=== PATIENT | male | born 1940 | race Caucasian/White ===

== ENCOUNTER → 2020-05-28 16:00 | Outpatient (CLI) | payer MEDICARE, OTHER, SELFPAY ==
--- NOTE | 2020-05-28 | CYSPIN_PTH ---
PATIENT: REYNALDO FRANK Jr. LOC: LAB U#:[id number] AGE/SX: 84/M ROOM: RE05/28/[address]: Dr. Abhishek Pedersen MD : 1940 BED: DIS: SPEC #: [id number] RECD: 05/29/20 08:27 STATUS: PAOLO REDeepa #: [id number] MANSI: 05/28/20 00:[address]: Abhishek Pedersen DEPT: CYTOLOGY RECD BY: Nabila Hollis ENTERED: 05/29/20 08:28 SP TYPE: CYSPIN FL OTHR DR: Dr. Micheal Jackman, DO Tissues: Urine Procedures: Pap Stain (control) Special Stain Group II Cytospin Fluid HEADER OPERATION: Not noted PRE-OP DIAGNOSIS: Gross hematuria TISSUE SUBMITTED: Urine for cytology DIAGNOSIS CYTOLOGY Urine for cytology (cytospin): Negative for malignant cells. Blood. AM:gerard 05/30/2020 CYTOLOGY STUDY Slides are reviewed. CYTOLOGY GROSS Received is 80 ml of yellow cloudy fluid labeled with the patient's name and and designated per the requisition as urine. Submitted for cytology preparation. / rg 05/29/2020 TC:5 CPT: 34104
[2020-05-28 17:07] LABS: Cytology, Body Fluid / CSF SEE PATHOLOGY REPORT
[2020-05-28 18:10] LABS: PSA,Total - Annual Screen 1.67 ng/mL (0.00-4.00)
== END ==
PROVIDERS: PCP Student in an Organized Health Care Education/Training Program; Referring Provider Urology; Visit Provider Urology
DX: R31.0 Gross hematuria (principal); Z12.5 Encounter for screening for malignant neoplasm of prostate
CPT/HCPCS: 36415; 84153; 88108; 88313; G0103